=== PATIENT | male | born 1985 ===

== ENCOUNTER 2023-10-20 13:55 | Emergency (ER) | payer OTHER, SELFPAY ==
[2023-10-20 13:57] VITALS: BP 146/93
[2023-10-20 14:28] VITALS: BMI 41.1
--- NOTE | 2023-10-20 15:28 | ED.GENMED ---
History of Present Illness
General
Chief Complaint: Anxiety
Source: patient
Exam Limitations: none
Time Seen by Provider: 10/20/23 15:10
Nursing documentation reviewed up to this point in time: agreed with
Travel History
Have you had any contact with someone who has COVID-19?: No
Do you have any symptoms of coronavirus? Fever > 100 degrees, chills, cough, shortness of breath, sore throat, loss of taste or smell, muscle aches, or headache?: No
History of Present Illness
History of Present Illness:
Patient is a 38-year-old male who presents to the ER for evaluation of anxiety attack. Patient reports this first started around 3 months ago where he was in a supermarket and started to hyperventilate and started to have a lot of thoughts in his
head. That episode finally resolved on its own. 3 weeks ago however he was driving with his kids and suddenly he started hyperventilating breathing heavy and having a lot of thoughts going on his head and had palpitations. He at that time called
EMS and was taken to a local ER miscellaneous with a panic attack. He has since then seen his family doctor Dr. Ralph Yap. He was placed on BuSpar and Vistaril in fact reports he has a Zoom call later this afternoon to go over these medicines
because he does not feel that these medicines are working. Today patient was at home playing video games and suddenly started to have the same symptoms of chest tightness hyperventilating a lot of thoughts going through his head. He called EMS and
presently is asymptomatic. He reports he do deep breathing and seem to improve symptoms.
He has had blood work done by both the previous ED and PCP. reports everything was normal except borderline high cholesterol.
He is not exactly sure what causes these panic attacks. He does report he is under a lot of stress and has his own online business but cannot think of any other provoking concern that is causing his symptoms.
He is presently asymptomatic.
Pt denies any suicidal /homicidal thoughts.
Review of Systems
Review of Systems
Allergies reviewed?: Yes
All Other Systems: ROS reviewed and negative except as documented in HPI and ROS
Constitutional: Reports no symptoms
EENT: Reports no symptoms
Respiratory: Reports no symptoms
Cardiac: Reports no symptoms
ABD/GI: Reports no symptoms
Skin: Reports no symptoms
Neurological: Reports no symptoms
Psychiatric: Reports anxiety; Denies depression, suicidal or hallucinations
Phy Exam
General Physical Exam
General Presentation: no apparent distress
General age: appears stated age
General Skin: warm and dry
General Habitus: normal
General Mental: alert
General Hydration: appears well hydrated
ENT Exam
ENT Exam: EOMI
Cardiovascular Exam
Cardiovascular Exam: regular rate/rhythm, no murmur and normal peripheral pulses
Pulmonary Exam
Pulmonary Exam: lungs clear and no respiratory distress
Neurological Exam
Neurological Exam: alert, no motor deficits, normal reflexs and no sensory deficits
Seth Coma Scale
Eye Opening: Spontaneous
Verbal Response: Oriented
Motor Response: Obeys Commands
GCS Total Score: 15
Musculoskeletal Exam
Musculoskeletal Exam: full ROM
Skin Exam
Skin Exam: normal color and warm/dry
Psychiatric Exam
Psychiatric Exam: normal mood/affect and other (pt presently calm on exam)
Course
Vital Signs
Initial and Last Documented VS:
Initial Vital Signs
Temp Pulse Resp BP Pulse Ox
98.3 F 96 18 146/93 97
10/20/23 13:57 10/20/23 13:57 10/20/23 13:57 10/20/23 13:57 10/20/23 13:57
Last Documented Vital Signs
Temp Pulse Resp BP Pulse Ox
98.3 F 96 18 146/93 97
10/20/23 13:57 10/20/23 13:57 10/20/23 13:57 10/20/23 13:57 10/20/23 13:57
MDM/Problems Addressed
Differential Diagnosis Includes:
not limited to : anxiety panic attacks
MDM/Problems Addressed:
Symptoms are consistent with anxiety/panic attack
Patient has had several episodes in the past as document he was worked up by his family doctor as well as a previous ER. He is asymptomatic here in the ER. He initially had appointment this family doctor today on Zoom to talk about his medications
not working however while here in the ER waiting to speak with crisis he met with his doctor on Zoom who change his medication to Lexapro and also referred him to psychiatry. Patient was evaluated by crisis given additional outpatient resources for
therapy. Patient is comfortable this plan of care he has no acute distress not anxious here in the ER looks well no physical complaints. will d/c
*Pulse Oximetry
Patient hypoxic: no
*Critical Care Note
Total Time (30-74mins, 75-104mins- exclusive of procedures): Not Applicable
ED Attending Note
-
Portions of this chart may have been created with voice recognition software.� Occasional wrong word or��sound alike� substitutions may have occurred due to the inherent limitations of voice recognition software.
Discharge Plan
Departure
Patient Disposition: Home (Routine Discharge)
Date of Disposition: 10/20/23
Time of Disposition: 16:56
Patient with high blood pressure during this ER visit?: Yes
Condition: Fair
Covid-19: Not Applicable
Discharge Problem:
Anxiety
Instructions: Anxiety, Adult (DC), BLOOD PRESSURE
Prescriptions:
No Action
buspirone 7.5 mg Tablet
7.5 mg PO PRN PRN (Reason: anxiety)
fluticasone propionate [Flonase] 50 mcg/actuation [place],Suspension
2 spray INTRANASAL PRN PRN (Reason: allergies)
hydroxyzine pamoate [Vistaril] 25 mg Capsule
25 mg PO HS PRN (Reason: anxiety )
Referrals:
UNKNOWN - PT DOES,NOT KNOW [Family Provider] -
Activity Restrictions/Additional Instructions:
Follow-up as discussed with your family doctor as well as outpatient psychiatry and therapy(resources that you were given here)
Return if any worsening of symptoms
Interventions
Interventions:
*Risk Screen - Suicide Last Done: 10/20/23 13:57
*General Assessment Last Done: 10/20/23 13:57
*Neglect/Abuse Screening Last Done: 10/20/23 13:57
ED- Fall Risk Assessment Last Done: 10/20/23 14:28
*ED COVID-19 Vaccine History Last Done: 10/20/23 13:57
*Nursing Disposition Last Done: 10/20/23 17:03
ED- Neurological Assessment Last Done: 10/20/23 15:30
ED-Psychological Assessment Last Done: 10/20/23 14:29
Discharge Date and Time
Discharge Date/Time: 10/20/23 17:03
Print Language: CROATIAN
== END 2023-10-20 17:03 | disposition home or self-care (01) ==
LOC: EMR 13:55
PROVIDERS: EMERGENCY PHYSICIAN Emergency Medicine
DX: F41.9 Anxiety disorder, unspecified (principal); E78.00 Pure hypercholesterolemia, unspecified
CPT/HCPCS: 99282